=== PATIENT | female | born 1980 | race Hispanic/Latino ===

== ENCOUNTER 2018-03-08 13:30 | Emergency (ER) | payer OTHER ==
[2018-03-08 14:38] LABS: Absolute Lymphocytes (CBC) 0.9 K/uL (0.7-4.9); Absolute Monocytes 0.4 K/uL (0.1-1.3); Absolute Neutrophil 5.2 K/uL (1.8-8.0); Basophils % 0.3 % (0-1.3); Eosinophils % 1.7 % (0-4.4); Hematocrit 40.3 % (36.0-45.0); MPV 7.7 fL (7.6-11.3); Monocytes % 6.6 % (3.3-12.3); RBC Red Blood Cell Count 4.52 M/uL (3.86-4.86)
[2018-03-08 14:41] LABS: ALT/SGPT 29 U/L (12-78); AST/SGOT 20 U/L (15-37); Albumin 3.8 g/dL (3.4-5.0); Alkaline Phosphatase 55 U/L (45-117); BUN Blood Urea Nitrogen 11 mg/dL (7-18); Bicarbonate 26 mmol/L (21-32); Bilirubin Direct 0.2 mg/dL (0-0.2); Glucose Level 84 mg/dL (74-106); Lipase 88 U/L (73-393); Potassium 3.7 mmol/L (3.5-5.1); Protein, Total 8.1 g/dL (6.4-8.2); Sodium Level 141 mmol/L (136-145)
[2018-03-08] MEDS ORDERED: PANTOPRAZOLE 40 MG INJ ONE (14:49)
[2018-03-08 14:51] LABS: Urine Blood TRACE (NEG); Urine Glucose NEGATIVE (NEG); Urine Protein 1+ (NEG); Urine Specific Gravity 1.015 (1.005-1.030); Urine pH 5.5 (5.0-7.0)
[2018-03-08] MEDS ORDERED: LIDOCAINE VISCOUS 2% SOLN 15 ML UDC ONE (15:20)
[2018-03-08] MEDS ORDERED: MAGNE/ALUM HYDROXD 30 ML UCUP ONE (15:20)
--- NOTE | 2018-03-08 15:27 | RAD REPORT ---
EXAM DESCRIPTION: US - Abdomen Exam Limited - 03/08/2018 3:07 pm CLINICAL HISTORY: r/o GB;Abd pain COMPARISON: Abdomen Exam Complete dated 08/10/2016 FINDINGS: The gallbladder demonstrates no gallstones. No pericholecystic fluid or gallbladder wall t hickening. The common bile duct is normal measuring 4 mm. The liver demonstrates no findings of intrahepatic biliary dilatation. IMPRESSION: Unremarkable examination.
--- NOTE | 2018-03-08 15:46 | EDPHYS ---
Physician Documentation [facility] Name: Radha Blair Age: 37 yrs Sex: Female : 1980 Arrival Date: 03/08/2018 Time: 13:33 Bed 6 Private MD: Sushant Rao E ED Physician Edwin Betancur HPI: 03/08 14:45 This 37 yrs old Female presents to ER via Ambulatory with complaints of jr8 Abdominal Pain, Vomiting/Diarrhea. 14:45 The patient presents with abdominal pain in the epigastric area, in the upper abdomen. jr8 Onset: The symptoms/episode began/occurred gradually, 2 day(s) ago. The symptoms do not radiate. Associated signs and symptoms: Pertinent positives: nausea, vomiting, and diarrhea. The symptoms are described as crampy. Severity of pain: At its worst the pain was moderate. The patient has not experienced similar symptoms in the past. The patient has not recently seen a physician. Patient stated that she started with upper abdominal discomfort and diarrhea with eating. Was given antibiotics and cleared it up. Now having same symptoms but with indigestion and vomiting as well . 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 - Social history:: Smoking status: Patient/guardian denies using tobacco. - Ebola Screening: : No symptoms or risks identified at this time. ROS: 14:45 Eyes: Negative for injury, pain, redness, and discharge, ENT: Negative for injury, jr8 pain, and discharge, Neck: Negative for injury, pain, and swelling, Cardiovascular: Negative for chest pain, palpitations, and edema, Respiratory: Negative for shortness of breath, cough, wheezing, and pleuritic chest pain, Back: Negative for injury and pain, MS/Extremity: Negative for injury and deformity, Skin: Negative for injury, rash, and discoloration, Neuro: Negative for headache, weakness, numbness, tingling, and seizure. 14:45 Abdomen/GI: Positive for abdominal pain, nausea, vomiting, and diarrhea, Negative for abdominal distension, anorexia, dysphagia, hematemesis, black/tarry stool, rectal pain, rectal bleeding, bowel incontinence, flatulence. Exam: 14:45 Eyes: Pupils equal round and reactive to light, extra-ocular motions intact. Lids and jr8 lashes normal. Conjunctiva and sclera are non-icteric and not injected. Cornea within normal limits. Periorbital areas with no swelling, redness, or edema. ENT: Nares patent. No nasal discharge, no septal abnormalities noted. Tympanic membranes are normal and external auditory canals are clear. Oropharynx with no redness, swelling, or masses, exudates, or evidence of obstruction, uvula midline. Mucous membranes moist. Neck: Trachea midline, no thyromegaly or masses palpated, and no cervical lymphadenopathy. Supple, full range of motion without nuchal rigidity, or vertebral point tenderness. No Meningismus. Cardiovascular: Regular rate and rhythm with a normal S1 and S2. No gallops, murmurs, or rubs. Normal PMI, no JVD. No pulse deficits. Respiratory: Lungs have equal breath sounds bilaterally, clear to auscultation and percussion. No rales, rhonchi or wheezes noted. No increased work of breathing, no retractions or nasal flaring. Back: No spinal tenderness. No costovertebral tenderness. Full range of motion. Skin: Warm, dry with normal turgor. Normal color with no rashes, no lesions, and no evidence of cellulitis. MS/ Extremity: Pulses equal, no cyanosis. Neurovascular intact. Full, normal range of motion. Neuro: Awake and alert, GCS 15, oriented to person, place, time, and situation. Cranial nerves II-XII grossly intact. Motor strength 5/5 in all extremities. Sensory grossly intact. Cerebellar exam normal. Normal gait. 14:45 Abdomen/GI: Inspection: abdomen appears normal, Bowel sounds: active, all quadrants, Palpation: soft, in all quadrants, mild abdominal tenderness, in the epigastric area and mid upper abdomen, mass, is not appreciated, rebound tenderness, is not appreciated, voluntary guarding, is not appreciated, involuntary guarding, is not appreciated, no appreciated organomegaly, Indicators: McBurney's point is not tender, Mackey's sign is negative, Rovsing's sign is negative, Liver: tenderness, is not appreciated. Vital Signs: 13:48 BP 124 / 87; Pulse 94; Resp 16 S; Temp 100(O); Pulse Ox 97% on R/A; Weight 73.94 kg jl7 (R); Height 5 ft. 1 in. (154.94 cm) (R); Pain 5/10; 15:00 BP 114 / 76; Pulse 80; Resp 14; Temp 99.2; Pulse Ox 100% on R/A; Pain 5/10; ch 13:48 Body Mass Index 30.80 (73.94 kg, 154.94 cm) 7 MDM: 13:52 Patient medically screened. jr8 15:44 Data reviewed: vital signs, nurses notes, lab test result(s), radiologic studies, jr8 ultrasound, and as a result, I will discharge patient. Data interpreted: Pulse oximetry: on room air is 100 %. Interpretation: normal. 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 Response to treatment: the patient's symptoms have resolved after treatment. 03/08 13:52 Order name: Basic Metabolic Panel; Complete Time: 14:41 03/08 13:52 Order name: CBC with Diff; Complete Time: 14:48 03/08 13:52 Order name: Creatinine for Radiology; Complete Time: 14:41 03/08 13:52 Order name: Hepatic Function; Complete Time: 14:41 03/08 13:52 Order name: Lipase; Complete Time: 14:41 03/08 14:09 Order name: Urine Dipstick--Ancillary (enter results) 03/08 13:52 Order name: IV Saline Lock; Complete Time: 14:28 03/08 13:52 Order name: Labs collected and sent; Complete Time: 14:28 03/08 13:52 Order name: Urine Test (obtain specimen); Complete Time: 14:28 03/08 13:52 Order name: Urine Dipstick-Ancillary (obtain specimen); Complete Time: 14:28 03/08 14:09 Order name: Urine --Ancillary (enter results) 03/08 14:37 Order name: US Abdomen Limited; Complete Time: 15:33 jr8 Administered Medications: 14:38 Drug: ProTONIX 40 mg Route: IVP; Site: right antecubital; Disposition: 16:40 Co-signature as Attending Physician, Edwin Betancur MD. rn Disposition: 03/08/18 15:45 Discharged to Home. Impression: Gastritis, unspecified, without bleeding. - Condition is Stable. - Discharge Instructions: Gastritis, Adult. - Prescriptions for Nexium 40 mg Oral capsule,delayed release(DR/EC) - take 1 capsule by ORAL route once daily; 30 capsule. - Work release form, Medication Reconciliation Form, Thank You Letter, Antibiotic Education, Prescription Opioid Use form. - Follow up: Sushant Granados MD; When: 5 - 6 days; Reason: Recheck today's complaints, Continuance of care, Re-evaluation by your physician. - Problem is new. - Symptoms have improved. Signatures: Dispatcher [employer] EDMS Bronwyn Hanson RN RN Edwin Betancur MD MD rn Calderon, Audri RN RN aa5 Anibal Ching PA PA jr8 Blanca Purcell RN RN jl7 Corrections: (The following items were deleted from the chart) 16:14 15:45 03/08/2018 15:45 Discharged to Home. Impression: Gastritis, unspecified, without aa5 bleeding. Condition is Stable. Forms are Medication Reconciliation Form, Thank You Letter, Antibiotic Education, Prescription Opioid Use. Follow up: Sushant Granados; When: 5 - 6 days; Reason: Recheck today's complaints, Continuance of care, Re-evaluation by your physician. Problem is new. Symptoms have improved. jr8
--- NOTE | 2018-03-08 15:46 | ER ---
Nurse's Notes [facility] Name: Radha Blair Age: 37 yrs Sex: Female : 1980 Arrival Date: 03/08/2018 Time: 13:33 Bed 6 Private MD: Sushant Rao E Diagnosis: Gastritis, unspecified, without bleeding Presentation: 03/08 13:43 Presenting complaint: Patient states: Dr. Rao sent me due to diarrhea x 2 weeks and jl7 then I started vomiting yesterday. Reports after eating epigastric pain gets really bad. Transition of care: patient was not received from another setting of care. Onset of symptoms was February 19, 2018. Risk Assessment: Do you want to hurt yourself or someone else? Patient reports no desire to harm self or others. Initial Sepsis Screen: Does the patient meet any 2 criteria? No. Patient's initial sepsis screen is negative. Does the patient have a suspected source of infection? No. Patient's initial sepsis screen is negative. Care prior to arrival: None. 13:43 Method Of Arrival: Ambulatory jl7 13:43 Acuity: CHRISTINE 3 jl7 Triage Assessment: 13:48 General: Appears in no apparent distress. uncomfortable, Behavior is calm, cooperative, jl7 appropriate for age. Pain: Complains of pain in epigastric area Pain currently is 5 out of 10 on a pain scale. at worst was 10 out of 10 on a pain scale. GI: Reports diarrhea, nausea, vomiting. 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 - Social history:: Smoking status: Patient/guardian denies using tobacco. - Ebola Screening: : No symptoms or risks identified at this time. Screenin:09 Abuse screen: Denies threats or abuse. Denies injuries from another. Nutritional ch screening: No deficits noted. Tuberculosis screening: No symptoms or risk factors identified. Fall Risk None identified. Assessment: 14:09 Reassessment: Patient appears in no apparent distress at this time. Patient and/or ch family updated on plan of care and expected duration. Pain level reassessed. Patient is alert, oriented x 3, equal unlabored respirations, skin warm/dry/pink. General: Appears in no apparent distress. comfortable, Behavior is calm, cooperative, appropriate for age. Pain: Complains of pain in epigastric area Pain currently is 6 out of 10 on a pain scale. Pain began gradually. Neuro: No deficits noted. Cardiovascular: No deficits noted. Respiratory: Airway is patent Respiratory effort is even, unlabored, Breath sounds are clear bilaterally. GI: Bowel sounds present X 4 quads. Abd is soft X 4 quads Abdomen is tender to palpation in right upper quadrant and left upper quadrant. : No signs and/or symptoms were reported regarding the genitourinary system. Derm: Skin is pink, warm \T\ dry. Musculoskeletal: No signs and/or symptoms reported regarding the musculoskeletal system. 15:00 Reassessment: Patient appears in no apparent distress at this time. No changes from previously documented assessment. Patient and/or family updated on plan of care and expected duration. Pain level reassessed. Patient is alert, oriented x 3, equal unlabored respirations, skin warm/dry/pink. Vital Signs: 13:48 BP 124 / 87; Pulse 94; Resp 16 S; Temp 100(O); Pulse Ox 97% on R/A; Weight 73.94 kg 7 (R); Height 5 ft. 1 in. (154.94 cm) (R); Pain 5/10; 15:00 BP 114 / 76; Pulse 80; Resp 14; Temp 99.2; Pulse Ox 100% on R/A; Pain 5/10; ch 13:48 Body Mass Index 30.80 (73.94 kg, 154.94 cm) 7 ED Course: 13:33 Patient arrived in ED. mr 13:33 Sushant Rao MD is Private Physician. mr 13:46 Triage completed. jl7 13:48 Arm band placed on right wrist. jl7 13:52 Anibal Ching PA is PHCP. jr8 13:52 Edwin Betancur MD is Attending Physician. jr8 13:58 Bronwyn Hanson, MARK is Primary Nurse. ch 14:00 Urine collected: clean catch specimen, clear, yesenia colored. jp3 14:09 No apparent distress. Resting quietly. ch 14:09 Patient has correct armband on for positive identification. Placed in gown. Bed in low ch position. Call light in reach. Side rails up X 1. Pulse ox on. NIBP on. Warm blanket given. 14:09 No provider procedures requiring assistance completed. ch 14:10 Inserted saline lock: 20 gauge in right Blood collected. jp3 14:10 Initial lab(s) drawn, by me, sent to lab. jp3 14:28 Basic Metabolic Panel Sent. jp3 14:28 CBC with Diff Sent. jp3 14:28 Creatinine for Radiology Sent. jp3 14:28 Hepatic Function Sent. jp3 14:28 Lipase Sent. jp3 14:28 Urine --Ancillary (enter results) Sent. jp3 14:28 Urine Dipstick--Ancillary (enter results) Sent. jp3 15:01 US Abdomen Limited In Process Unspecified. EDMS 15:12 Ultrasound completed. Patient moved back from ultrasound. [facility] 15:45 Sushant Granados MD is Referral Physician. jr8 17:00 IV discontinued, intact, bleeding controlled, No redness/swelling at site. Pressure ch dressing applied. Administered Medications: 14:38 Drug: ProTONIX 40 mg Route: IVP; Site: right antecubital; Outcome: 15:45 Discharge ordered by . jr8 16:14 Patient left the ED. aa5 16:59 Discharged to home ambulatory. 16:59 Condition: good 16:59 Discharge instructions given to patient, Instructed on discharge instructions, follow up and referral plans. medication usage, Demonstrated understanding of instructions, follow-up care, medications, Prescriptions given X 1. Signatures: Dispatcher [employer] EDWY Bronwyn Hanson, RN RN Viv Aguillon mr DuvlalLaura RN RN aa5 Anibal Ching, PAUL PA jr8 Alec Olivares Jahala, RN RN jl7 Mehul Doyle jp3
== END 2018-03-08 16:14 | disposition home or self-care (01) ==
LOC: ER 13:30
DX: K29.70 Gastritis, unspecified, without bleeding (principal)
CPT/HCPCS: 36415; 76705; 80048; 80076; 81003; 81025; 83690; 85025; 96374; 99284; C9113